=== PATIENT | female | born 1940 | race American Indian/Alaskan Native ===

== ENCOUNTER 2018-12-08 07:39 | Day surgery (SDC) | payer MEDICARE ==
[2018-12-08] MEDS ORDERED: NACL 0.9% 500 ML 500 ML IV SCH (08:00)
[2018-12-08] MEDS ORDERED: HEPARIN 10,000 UNITS/10 ML ONE (08:58)
[2018-12-08] MEDS ORDERED: HEPARIN/NS 5000 UNIT/500ML(CATH LAB) 1,000 ML IR ONE (08:58)
[2018-12-08] MEDS ORDERED: XYLOCAINE 2% INFILTRATI ONE (08:59)
[2018-12-08] MEDS ORDERED: CALAN ONE (08:59)
[2018-12-08] MEDS ORDERED: SUBLIMAZE ONE (08:59)
[2018-12-08] MEDS ORDERED: VERSED ONE (08:59)
[2018-12-08] MEDS: NITROGLYCERIN SYRINGE 3 ML ONE ×2 (09:48→09:49)
--- NOTE | 2018-12-08 10:50 | Short Stay Summary ---
Short Stay Documentation Date of service: 12/08/18 - History H&P: obtained from office - Allergies and Medications Current Medications: Allergies No Known Allergies Allergy (Verified 05/22/15 07:52) Home Medications Medication Instructions Recorded Confirmed Last Taken Type Aspirin EC [Aspirin Enteric Coated 81 mg PO QDAY 05/22/15 12/08/18 12/07/18 History TAB] 81mg AtorvaSTATin [Lipitor] 80 mg PO QHS 05/22/15 12/08/18 12/07/18 History 80mg Diclofenac Sodium 75 mg PO BID 12/08/18 12/08/18 12/07/18 History 75mg ISOSORBIDE MONOnitrate [Imdur ER] 120 mg PO QDAY 12/08/18 12/08/18 12/07/18 History 120mg Metoprolol [Lopressor TAB] 50 mg PO BID 12/08/18 12/08/18 12/07/18 History 50mg Nitroglycerin 0.4 mg SL PRN PRN 12/08/18 12/08/18 Unknown History Ranitidine HCl [Zantac] 150 mg PO BID 12/08/18 12/08/18 12/07/18 History 150mg Spironolactone [Aldactone] 25 mg PO DAILY 12/08/18 12/08/18 12/07/18 History 25mg hydrALAZINE [Apresoline TAB] 50 mg PO BID 12/08/18 12/08/18 12/07/18 History 50mg Active Medications Sodium Chloride (Nacl 0.9% 500 Ml) 500 mls @ 50 mls/hr IV DIRECT BILLY Stop: 12/08/18 17:59 Last Admin: 12/08/18 09:45 Dose: 100 mls Documented by: - Brief post op/procedure progress note Date of procedure: 12/08/18 Pre-op diagnosis: angina Post-op diagnosis: same Procedure: see report Anesthesia: local Estimated blood loss: none Pathology: none - Disposition Condition at discharge: Good Disposition: [id number] TO HOME OR SELFCARE - Discharge Diagnoses (1) Abnormal stress test Status: Acute (2) Chest pain Status: Acute Qualifiers: Ischemic chest pain type: stable angina pectoris (3) CAD (coronary artery disease) Status: Chronic Qualifiers: Coronary Disease-Associated Artery/Lesion type: inaja artery Associated angina: with stable angina (4) HTN (hypertension) Status: Chronic Qualifiers: Hypertension type: essential hypertension Qualified Code(s): I10 - Essential (primary) hypertension (5) Hyperlipidemia Status: Chronic Qualifiers: Hyperlipidemia type: mixed hyperlipidemia Qualified Code(s): E78.2 - Mixed hyperlipidemia Short Stay Discharge Plan Activity: advance as tolerated Diet: low fat, low salt Wound: keep clean and dry Follow up with: EHSAN CESAR MD [Primary Care Provider] - 7 Days
--- NOTE | 2018-12-08 12:55 | Cardiac Catherization Report ---
LEFT HEART CATHETERIZATION PROCEDURE DONE BY: Andres Nur MD REFERRING PHYSICIAN: Samir Castano MD CLINICAL INFORMATION: 1. This is a 78-year-old -[place] female with hypertension, hyperlipidemia who has been having increasing angina with stress test shows moderate ischemia in the apical and apical septal regions, history of coronary artery disease in 2015, had ostial LAD and mid LAD lesion, was sent for robotic OLSON to LAD. The patient states he had some relief from that, but has been having more discomfort in the last few months. 2. Procedure was done with moderate sedation, 0.5 mg Versed, 25 mcg of fentanyl. Total sedation time was 31 minutes, started at 9:46 a.m., finished at 10:17 a.m. The procedure was performed by the left radial artery, sterile technique, local anesthesia, 6-Bermudian radial sheath inserted, used a JR4 catheter in the left subclavian and multiple angiograms showed an atretic OLSON. 3. There was an LV gram done in GREEK and ARMIJO view shows normal LV function. LV was 141/15 mmHg and the LVEDP. Aortic on pullback was 135/61 mmHg. No gradient across the aortic valve on pullback. EF is approximately 55-60%. 4. RCA engaged with JR4 catheter, is a medium caliber, nondominant vessel that is patent, bifurcates into small PDA. 5. Left system engaged with JL3.5 catheter. Left main is large and patent diffusely diseased 10%, bifurcates to large LAD, has an ostial 90%, mid 80%, had a small to medium caliber diagonal and the rest of the LAD and the distal apex is small caliber. Circumflex is a large dominant vessel and AV groove is patent with mild luminal irregularities. Small OM1 is patent, OM2 is a medium caliber vessel, left posterior descending arteries. LPDA is a small to medium caliber vessel, patent. 6. So, we did an intravascular ultrasound of the left main and LAD. A 6-Bermudian guiding catheter was used an EBU 3.5 with side holes, crossed and distal LAD with a short Johnston wire. 7. LAD distal reference vessel was 2.5 x 2.75. In the mid LAD, there is a focal stenosis with a plaque area of 80% of a 3-0 vessel and diagonal 1 ostial is free of disease. 8. Then, the ostial LAD is disease all the way up to the bifurcation with a plaque burden of 80% calcified, MLA of 4 mm2. Left main is patent with mild plaque diffusely 10-20%. Circumflex is patent. Ostial, no disease noted. 9. Removed FFF wire, continued SOHAN 3 flow. No dissection or perforation. So, left main is diffuse 10-10%. LAD ostial is 90%, mid 80%, circumflex large and patent. 10. A 6-Bermudian guiding catheter taken over guidewire, 6-Bermudian radial sheath was discontinued. Radial band applied. No hematoma, no bleeding. SUMMARY: OLSON to LAD is atretic, left main diffuse 10-20% with a LAD ostial 90%, and mid 80%. Circumflex is large dominant, patent with mild luminal irregularities. OM1 is patent. Small OM2 is small to medium caliber and patent. LPDA is small to medium caliber and patent. RCA is a nondominant vessel, medium caliber, patent with normal LV function. The patient will be referred to [facility] for possible rotational atherectomy of the LAD with stenting or repeat bypass surgery. Discussed this in detail with the patient and the patient's family. JOB# [id number] TARA/SATHISH
[2018-12-08 13:51] VITALS: BP 133/68
== END 2018-12-08 15:30 | disposition home or self-care (01) ==
LOC: CATH 07:39 → CATHLABREC 07:39
PROVIDERS: ATTEND Internal Medicine
DX: I25.118 Atherosclerotic heart disease of native coronary artery with other forms of angina pectoris (principal); E78.5 Hyperlipidemia, unspecified; I10 Essential (primary) hypertension; H40.9 Unspecified glaucoma; E78.00 Pure hypercholesterolemia, unspecified; K21.9 Gastro-esophageal reflux disease without esophagitis; M19.90 Unspecified osteoarthritis, unspecified site; Z98.890 Other specified postprocedural states; Z95.1 Presence of aortocoronary bypass graft; Z90.710 Acquired absence of both cervix and uterus; Z83.3 Family history of diabetes mellitus; Z79.899 Other long term (current) drug therapy; Z79.82 Long term (current) use of aspirin
CPT/HCPCS: 92978; 93005; 93010; 93458; 99156; 99157; C1753; C1769; C1887; C1894; J1644; J2250; J3010; J7040; 85347; 93459; Q9967